=== PATIENT | male | born 1950 | race Caucasian/White ===

== ENCOUNTER 2016-10-04 09:31 | Outpatient (CLI) | payer OTHER | END 2016-10-04 19:08 | disposition home or self-care (01) | LOC: SRD 09:31 | PROVIDERS: ATTEND Family Medicine | DX: Z13.9 Encounter for screening, unspecified (principal); R07.89 Other chest pain; Z76.89 Persons encountering health services in other specified circumstances | CPT/HCPCS: 71020-TC ==